=== PATIENT | female | born 1980 | race Two or more races ===

== ENCOUNTER 2020-09-23 12:46 | Emergency (ER) | payer MEDICAID ==
[~2020-09-23] VITALS: Ht 177.8 cm; Wt 74.8 kg
[2020-09-23 12:46] VITALS: BP 144/78
[2020-09-23] MEDS ORDERED: KETOROLAC TROMETH 60MG/2ML VIAL IM ONE (14:30)
== END 2020-09-23 23:08 | disposition home or self-care (01) ==
LOC: ER 12:46
DX: G43.909 Migraine, unspecified, not intractable, without status migrainosus (principal); F32.9 Major depressive disorder, single episode, unspecified
CPT/HCPCS: 70450; 96372; 99284; J1885